=== PATIENT | female | born 1945 | race Caucasian/White ===

== ENCOUNTER 2016-11-27 11:28 | Emergency (ER) | payer OTHER ==
[~2016-11-27] VITALS: Ht 147.3 cm; Wt 38.6 kg
[~2016-11-27 11:28] MED LIST: AMAN100T PO; CARB-93 PO; ROPI0.5T PO
[2016-11-27 12:44] LABS: BASOPHILS % (AUTO) 0.4 % (0.0-2.0); EOSINOPHILS # (AUTO) 0.2 K/uL (0.0-0.7); EOSINOPHILS % (AUTO) 2.3 % (0.0-7.0); HEMATOCRIT 33.8 % (37.0-47.0); HEMOGLOBIN 11.2 g/dL (12.0-16.0); LYMPHOCYTES # (AUTO) 2.1 K/uL (0.8-4.8); LYMPHOCYTES % (AUTO) 27.5 % (20.5-51.5); MEAN CORPUSCULAR HEMOGLOBIN 31.2 uug (27.0-31.0); MEAN CORPUSCULAR HGB CONC 33 g/dL (32.0-37.0); MEAN CORPUSCULAR VOLUME 93.8 fL (81.0-99.0); MONOCYTES # (AUTO) 0.5 K/uL (0.1-1.30); MONOCYTES % (AUTO) 6.8 % (0.0-11.0); NEUTROPHILS # (AUTO) 4.8 K/uL (1.8-8.9); PLATELET COUNT (AUTO) 310 K/uL (150-450); RED BLOOD CELL COUNT(AUTO) 3.61 MIL/uL (4.20-5.40); RED CELL DISTRIBUTION WIDTH 13.6 % (11.5-14.5); WHITE BLOOD COUNT (AUTO) 7.6 K/uL (4.0-11.2)
[2016-11-27 12:46] LABS: CALCIUM 9.1 mg/dL (8.5-10.1); CREATININE 0.5 mg/dL (0.6-1.3); POTASSIUM 3.3 mmol/L (3.5-5.1)
[2016-11-27 12:52] LABS: ALBUMIN 4.1 g/dL (3.4-5.0); BILIRUBIN,DIRECT 0.1 mg/dL (0.0-0.2); BILIRUBIN,TOTAL 0.2 mg/dL (0.2-1.0); TOTAL PROTEIN, SERUM 8.4 g/dL (6.4-8.2)
[2016-11-27] MEDS ORDERED: POT CHLORIDE/POT BICARB/CIT AC 25 MEQ TABLET.EFF PO ONE (13:30)
[2016-11-27] MEDS ORDERED: POTASSIUM BICARBONATE/CIT AC 25 MEQ TABLET.EFF ONE (13:48)
[2016-11-27 14:26] LABS: *BILIRUBIN,URIN NEGATIVE (NEGATIVE); *BLOOD, URINE Trace-lysed (NEGATIVE); *CLARITY,URINE CLEAR (CLEAR); *COLOR,URINE YELLOW (YELLOW); *KETONES,URINE NEGATIVE (NEGATIVE); *PROTEIN,URINE NEGATIVE (NEGATIVE); *UROBILINOGEN,URINE 0.2 E.U./dl (NORMAL); NITRITE, URINE NEGATIVE (NEGATIVE); UGLUCOSE NEGATIVE (NEGATIVE)
[2016-11-27 14:29] LABS: LEUKOCYTE ESTERASE ,URINE TRACE (NEGATIVE)
[2016-11-27 14:33] LABS: BACTERIA,URINE NONE SEEN /HPF (NONE SEEN); MUCUS,URINE FEW /LPF (0-FEW); SQUAMOUS EPITHELIAL CELL,UR FEW /HPF (NONE SEEN)
--- NOTE | 2016-11-27 14:50 | NUR ---
Patient discharged to home in stable conditon. Written and verbal after care instructions given, RX GIVEN FOR CILOXAN. GUARDIAN verbalizes understanding of instructions. No further questions or concerns noted prior on leaving the ED.
[2016-11-27 14:51] VITALS: BP 138/89
== END 2016-11-27 14:52 | disposition home or self-care (01) ==
LOC: ER 11:29
DX: B99.9 Unspecified infectious disease (principal); H10.89 Other conjunctivitis; R50.9 Fever, unspecified
CPT/HCPCS: 36415; 71010; 80048; 80076; 81001; 83605; 85025; 87040 ×2; 87086; 99285; A4663